=== PATIENT | female | born 1955 | race Caucasian/White ===

== ENCOUNTER → 2016-12-18 | Outpatient (CLI) | payer OTHER ==
[~2016-12-18] MED LIST: ATR20T PO; ESTR1TAB24 PO; GEMF600T3 PO; KRIL1CAP6 PO; MTP100TCR PO; NF-ESOM40C PO; NF-LOVAZAC PO; NIACIN PO; RELPAX PO
--- OUTSIDE RECORDS SUMMARY | 2016-12-18 14:26 | XMS REPORT | Continuity of Care Document ---
Author Author [facility] Organization [facility] Address Unknown Phone Unavailable Allergies Active Description Code Type Severity Reaction Onset Reported/Identified Relationship to Patient Clinical Status Yes penicillins Drug N/A breathing diffi Yes penicillins Drug N/A N/A Yes sulfa drugs Drug N/A hives Yes sulfa drugs Drug N/A N/A Medications Problems Date Dx Coded Attending Type Code Diagnosis Diagnosed By 03/21/2015 Ben Roe Final 278.00 Obesity, Unspecified 03/21/2015 Ben Roe Final 340 Multiple Sclerosis 03/21/2015 Ben Roe Final 401.9 Unspecified Essential Hypertension 03/21/2015 Ben Roe Final 719.41 Pain in Joint Involving Shoulder Region 03/21/2015 eBn Roe Final 729.5 Pain in Limb 03/21/2015 Ben Roe Final 786.50 Unspecified Chest Pain 03/21/2015 Ben Roe Final V14.0 Personal History of Allergy to Penicillin 03/21/2015 Ben Roe Final V14.2 Personal History of Allergy to Sulfonamides 03/21/2015 Ben Roe Final V17.3 Family History of Ischemic Heart Disease 03/21/2015 Ben Roe Final V85.41 Body mass index 40.0-44.9, adult Procedures Results Encounters ACCT No. Visit Date/Time Discharge Status Pt. Type Provider Facility Loc./Unit Complaint [id number] 03/20/2015 12:27:00 2014 12:38:00 DIS Outpatient Ben Roe 2ND CHEST PAIN
--- NOTE | 2016-12-18 20:37 | Diagnostic Imaging Report ---
Ultrasound of the left breast. INDICATION: Left breast lump. FINDINGS: Reportedly, the patient has had a long-standing lump within the left breast. The diagnostic mammogram performed earlier today noted that the fibroglandular tissue in the left breast was quite dense, but that there was no primary or secondary sign of malignancy noted. On this study, there is no discrete solid or cystic mass within the left breast. I suspect that the palpable abnormality in question is secondary to fibroglandular tissue alone; however, if clinical concern regarding an underlying abnormality persists, then biopsy should still be considered. IMPRESSION: There is no evidence for malignancy. Clinical follow-up is recommended. ACR BI-RADS Category 1: Negative. Dictated by: Dictated on workstation # [id number]
--- NOTE | 2016-12-19 10:56 | Diagnostic Imaging Report ---
EXAMINATION: Digital mammogram bilateral diagnostic. INDICATION: Left breast lump The current study was also evaluated with a Computer Aided Detection (CAD) system. This study was compared to prior exams of 06/22/12, 02/27/11 and 02/12/10. At this time there are no current complaints aside from a long-standing lump in the left breast. Marker was placed in the area of concern in the 2 o'clock position of the left breast. There is no primary or secondary sign of malignancy in this area. However the fibroglandular tissue in the left breast is quite dense and could mask an underlying lesion. I would recommend that ultrasound of the left breast be performed for further study. The fibroglandular tissue in the right breast is also quite dense. There is no primary or secondary sign of malignancy noted. IMPRESSION: There is no evidence of malignancy. In particular there is no abnormality to account for the patient's palpable mass in the left breast. Ultrasound would be recommended for further study. ACR BI-RADS Category 0: Incomplete. (Needs additional imaging evaluation). Result letter will be mailed to the patient. Note: At least 10% of breast cancer is not imaged by mammography. Dictated by: Dictated on workstation # [id number]
== END ==
LOC: RAD 14:23
PROVIDERS: ATTEND Nurse Practitioner Family
DX: N63 Unspecified lump in breast (principal)
CPT/HCPCS: 76642; 77066

== ENCOUNTER → 2019-06-30 | Outpatient (CLI) | payer BC, MEDICARE ==
--- NOTE | 2019-06-30 08:58 | Diagnostic Imaging Report ---
Indication: Stepped on a rock in December with continued foot pain, particularly in the region of the heel. Time of exam: 8:34 AM 3 views of the right foot were obtained. The metatarsals are unremarkable. No periosteal reaction or stress reaction is identified. The phalanges are intact. Midfoot and hindfoot are unremarkable apart from a small plantar calcaneal spur. No fractures are seen. There is no evidence of calcaneal stress reaction. Impression: No acute bony abnormality is detected. Dictated by: Dictated on workstation # [id number]
== END ==
LOC: RAD 08:17
PROVIDERS: ATTEND Nurse Practitioner Family
DX: M79.671 Pain in right foot (principal); W22.8XXA Striking against or struck by other objects, initial encounter
CPT/HCPCS: 73630

== ENCOUNTER → 2019-07-26 | Outpatient (CLI) | payer BC, MEDICARE ==
--- NOTE | 2019-07-26 12:09 | Diagnostic Imaging Report ---
INDICATION: Routine screening. Comparison is made with prior mammogram from 12/18/2016. 2-D and 3-D bilateral screening mammography was performed with CAD. Both breasts are heterogeneously dense, limiting the sensitivity of mammography. No mass or malignant appearing microcalcifications are seen. The axillae are unremarkable. IMPRESSION: BI-RADS Category 1 No mammographic features suspicious for malignancy are identified. ACR BI-RADS Category 1: Negative. Result letter will be mailed to the patient. Note: At least 10% of breast cancer is not imaged by mammography. Dictated by: Dictated on workstation # [id number]
== END ==
LOC: RAD 10:54
PROVIDERS: ATTEND Nurse Practitioner Family
DX: Z12.31 Encounter for screening mammogram for malignant neoplasm of breast (principal)
CPT/HCPCS: 77067

== ENCOUNTER → 2020-08-21 | Outpatient (CLI) | payer BC, MEDICARE ==
--- NOTE | 2020-08-21 11:37 | Diagnostic Imaging Report ---
INDICATION: Routine screening. COMPARISON: 07/26/2019 and 12/18/2016. TECHNIQUE: 2D and 3D bilateral screening mammography was performed with CAD. FINDINGS: Both breasts are heterogeneously dense, limiting the sensitivity of mammography. No mass or malignant appearing microcalcifications are identified. The axillae are unremarkable. IMPRESSION: No mammographic features suspicious for malignancy are identified. ACR BI-RADS Category 1: Negative. Result letter will be mailed to the patient. Note: At least 10% of breast cancer is not imaged by mammography. Dictated by: Dictated on workstation # [id number]
== END ==
LOC: RAD 08:00
DX: Z12.31 Encounter for screening mammogram for malignant neoplasm of breast (principal)
CPT/HCPCS: 77063; 77067

== ENCOUNTER → 2021-09-20 | Outpatient (CLI) | payer BC, MEDICARE ==
--- NOTE | 2021-09-20 11:39 | Diagnostic Imaging Report ---
INDICATION: Routine screening. Comparison is made prior mammogram 08/21/2020 and 07/26/2019. 2-D and 3-D bilateral screening mammography was performed with CAD. Both breasts remain heterogeneously dense, limiting the sensitivity of mammography. The parenchymal pattern is stable. No mass or malignant-appearing microcalcifications are seen. Axillae are unremarkable. IMPRESSION: BI-RADS Category 1 No mammographic features suspicious for malignancy are identified. ACR BI-RADS Category 1: Negative. Result letter will be mailed to the patient. Note: At least 10% of breast cancer is not imaged by mammography. Dictated by: Dictated on workstation # [id number]
== END ==
LOC: RAD 10:15
DX: Z12.31 Encounter for screening mammogram for malignant neoplasm of breast (principal)
CPT/HCPCS: 77063; 77067

== ENCOUNTER → 2022-09-24 | Outpatient (CLI) | payer BC, MEDICARE ==
--- NOTE | 2022-09-24 14:27 | Diagnostic Imaging Report ---
INDICATION: Routine screening. Comparison is made with prior mammogram of 09/20/2021 and 08/21/2020. 2-D and 3-D bilateral screening mammography was performed with CAD. Both breasts are heterogeneously dense, limiting the sensitivity of mammography. The parenchymal pattern is stable. No mass or malignant-appearing microcalcifications are seen. Axillae are unremarkable. IMPRESSION: No mammographic features suspicious for malignancy are identified. ACR BI-RADS Category 1: Negative. Result letter will be mailed to the patient. Note: At least 10% of breast cancer is not imaged by mammography. BI-RADS Category 1 Dictated by: Dictated on workstation # [id number]
== END ==
LOC: RAD 07:50
PROVIDERS: ATTEND Nurse Practitioner Family
DX: Z12.31 Encounter for screening mammogram for malignant neoplasm of breast (principal)
CPT/HCPCS: 77063; 77067

== ENCOUNTER → 2023-07-29 | Outpatient (CLI) | payer BC, MEDICARE ==
--- NOTE | 2023-07-29 11:31 | Diagnostic Imaging Report ---
INDICATION: Postmenopausal state. COMPARISON: None available FINDINGS: AP Spine L1-L4: [BMD (g/cm2): 1.519] [T-Score: 2.7] [Z-Score: 4.3] [BMD Previous: NA] [BMD % Change: NA] LT Hip Neck: [BMD (g/cm2): 0.938] [T-Score: -0.7] [Z-Score: 0.9] LT Hip Total: [BMD (g/cm2):0.971] [T-Score:-0.3] [Z-Score: 1.1] [BMD Previous: NA] [BMD % Change: NA] RT Hip Neck: [BMD (g/cm2):0.920] [T-Score:-0.9] [Z-Score:0.8] RT Hip Total: [BMD (g/cm2):0.949] [T-score:-0.5] [Z-Score:1.0] [BMD Previous:NA] [BMD % Change:NA] *Indicates significant change from prior examination based on 95% confidence level. World Health Organization criteria for BMD interpretation classify patients as Normal (T-score at or above -1.0), Osteopenic (T-score between -1.0 and -2.5) or Osteoporotic (T-score at or below -2.5). LIMITATIONS AND MODIFICATION: None. FRACTURE RISK (FRAX SCORE): The ten year probability of (%): Major Osteoporotic Fracture: [8.5] Hip Fracture: [0.8] IMPRESSION: 1. Normal bone mineral density. 2. Baseline examination. 3. See below National Osteoporosis Foundation guidelines on when to potentially initiate pharmacologic therapy. Based on the National Osteoporosis Foundation Guidelines, pharmacologic treatment should be initiated in any of the following, unless clinical conditions suggest otherwise: * Any patient with prior fragility fracture of the hip or vertebrae. A spine fracture indicates 5X risk for subsequent spine fracture and 2X risk for subsequent hip fracture. * Osteoporosis (T-score <-2.5). * Postmenopausal women and men age 50 and older with low bone mass/osteopenia (T-score between -1.0 and -2.5) by DXA and 10-year major osteoporotic fracture greater than 20% or a 10-year probability of hip fracture greater than 3%. These fracture risks are supplied above in the FRAX score, if applicable. * Clinician judgement and/or patient preferences may indicate treatment for people with 10-year fracture probabilities above or below these levels. Dictated by: Dictated on workstation # [id number]
== END ==
LOC: RAD 08:30
PROVIDERS: ATTEND Nurse Practitioner Family
DX: Z78.0 Asymptomatic menopausal state (principal)
CPT/HCPCS: 77080

== ENCOUNTER → 2023-08-18 | Outpatient (CLI) | payer BC, MEDICARE ==
--- NOTE | 2023-08-18 14:25 | Diagnostic Imaging Report ---
EXAMINATION: Chest, 2 views. HISTORY: Cough. COMPARISON: None available. FINDINGS: The lungs are clear without edema or pneumonia. No pleural effusion or pneumothorax. Heart size is normal. IMPRESSION: Clear lungs. Dictated by: Dictated on workstation # [id number]
== END ==
LOC: RAD 13:46
PROVIDERS: ATTEND Nurse Practitioner Family
DX: R05.9 Cough, unspecified (principal)
CPT/HCPCS: 71046